=== PATIENT | female | born 1980 | race Caucasian/White ===

== ENCOUNTER → 2016-08-05 | Outpatient (CLI) | payer BC, OTHER | LOC: US 07:45 | DX: R10.11 Right upper quadrant pain (principal); R11.2 Nausea with vomiting, unspecified | CPT/HCPCS: 76705 ==

== ENCOUNTER → 2016-08-18 | Outpatient (CLI) | payer BC, OTHER | LOC: NM 08-15 14:30 | DX: M86.072 Acute hematogenous osteomyelitis, left ankle and foot (principal) | CPT/HCPCS: 78227; A9537; J2805 ==